=== PATIENT | male | born 1965 | race Caucasian/White ===

== ENCOUNTER 2021-08-14 03:12 | Emergency (ER) | payer BC ==
[2021-08-14 03:23] VITALS: TEMP 98.8; BMI 25.0
[2021-08-14] MEDS ORDERED: LACTATED RINGERS SOLUTION 1000 ML INFUS.BAG IV ONE (03:51)
[2021-08-14] MEDS ORDERED: ONDANSETRON 4 MG/2 ML VIAL IVPUSH ONE (03:51)
[2021-08-14] MEDS ORDERED: morphine CARPU-JECT 4 MG/1 ML DISP.SYRIN IVPUSH ONE ×2 (03:51→07:42)
[2021-08-14] MEDS ORDERED: ONDANSETRON 4 MG/2 ML VIAL ONE (04:03)
[2021-08-14] MEDS ORDERED: morphine SULFATE 4 MG/ML VIAL ONE ×2 (04:03→08:24)
[2021-08-14 04:51] LABS: HEMATOCRIT 26.8 % (35.4-49); HEMOGLOBIN 8.7 GM/dL (11.7-16.9); MCHC 32.6 g/dl (32.0-35.9); MEAN CELL VOLUME 76.7 fl (80-96); MEAN PLT VOLUME 6.9 fl (7.5-11.1); PLATELET COUNT 314 10^3/uL (134-434); RBC 3.49 M/mm3 (4.00-5.60); RDW 24.7 % (11.9-15.9); WHITE BLOOD COUNT 6.8 K/mm3 (4.0-10.0)
[2021-08-14 05:25] LABS: INR 1.03 (0.83-1.09); PROTHROMBIN TIME (PATIENT) 11.8 SEC (9.7-13.0)
[2021-08-14 05:28] LABS: ACTIVATED PTT 32.8 SECONDS (25.2-36.5)
[2021-08-14 05:57] LABS: CALCIUM 8.9 mg/dL (8.5-10.1)
[2021-08-14 05:58] LABS: BLOOD UREA NITROGEN 20.1 mg/dL (7-18)
[2021-08-14 06:00] LABS: CREATININE 0.7 mg/dL (0.55-1.3)
[2021-08-14 06:02] LABS: BILIRUBIN,TOTAL 0.4 mg/dL (0.2-1); TOT PROT 7.1 g/dl (6.4-8.2)
[2021-08-14] MEDS ORDERED: ACETAMINOPHEN 1000 MG/100 ML BAG IVPB ONE (07:45)
[2021-08-14] MEDS ORDERED: ACETAMINOPHEN INJECTION 100 ML IVPB ONE (08:24)
[2021-08-14 09:27] LABS: ANISOCYTOSIS 2+; MACROCYTOSIS 0
[2021-08-14 09:36] LABS: URINE APPEARANCE CLEAR; URINE BILIRUBIN NEGATIVE (NEGATIVE); URINE COLOR YELLOW; URINE GLUCOSE (UA) TRACE (NEGATIVE); URINE KETONE NEGATIVE (NEGATIVE); URINE LEUK ESTERASE NEGATIVE (NEGATIVE); URINE NITRITE NEGATIVE (NEGATIVE); URINE PROTEIN NEGATIVE (NEGATIVE); URINE UROBILINOGEN 0.2 mg/dL (0.2-1.0)
[2021-08-14] MEDS ORDERED: CEFTRIAXONE 1,000 MG in DEXTROSE 5%-WATER - 50 ML IVPB ONE (11:46)
[2021-08-14 12:22] VITALS: BP 136/76; PULSE 80
== END 2021-08-14 12:20 | disposition home or self-care (01) ==
LOC: JER 03:12
PROC: 3E0333Z Introduction of Anti-inflammatory into Peripheral Vein, Percutaneous Approach (ICD-10-PCS; principal; 2021-08-14)
PROC: 3E03329 Introduction of Other Anti-infective into Peripheral Vein, Percutaneous Approach (ICD-10-PCS; 2021-08-14)
PROC: 3E033NZ Introduction of Analgesics, Hypnotics, Sedatives into Peripheral Vein, Percutaneous Approach (ICD-10-PCS; 2021-08-14)
PROC: 3E033NZ Introduction of Analgesics, Hypnotics, Sedatives into Peripheral Vein, Percutaneous Approach (ICD-10-PCS; 2021-08-14)
PROC: 3E033GC Introduction of Other Therapeutic Substance into Peripheral Vein, Percutaneous Approach (ICD-10-PCS; 2021-08-14)
DX: R10.84 Generalized abdominal pain (principal)
CPT/HCPCS: 36415; 71045-TC-FY; 74177-TC; 76705-TC; 80053; 81003; 83605; 83690; 84484; 85025; 85610; 85730; 86850; 86900; 86901; 93005; 93010; 99285-25; C9803-CS; Q9967; U0003; U0005